=== PATIENT | male | born 1985 | race Caucasian/White ===

== ENCOUNTER 2019-07-08 16:42 | Emergency (ER) | payer BC ==
[2019-07-08 16:51] VITALS: BP 153/69
--- NOTE | 2019-07-08 17:12 | UC ---
Cardiac HPI - HPI Summary HPI Summary: 33-year-old male comes in with a chief complaint of Chest pain. Patient's been having some sternal pain with range of motion and movement for about 2 weeks. 2 nights ago he woke up when he was laying on his left side and had 10 out of 10 left-sided pain. Pain was worse with palpation and taking a deep breath. Denies any shortness of breath or nausea or sweating. He's been taking ibuprofen which helps with the pain. Denies any history of GERD. He did have a left calf cramp which lasted less than a half an hour about 5 days ago. He's had no calf swelling and no other episodes of calf pain. No history of DVT or pulmonary embolus. Calf pain occurred prior to driving to [place]. The severe pain occurred while he was in [place]. When he drove back from [place] he came here to clinic. He has no history of hypertension or high cholesterol or diabetes. No family history of clotting disorders. - History of Current Complaint Chief Complaint: UCChestPain Stated Complaint: CHEST PAIN, RIB PAIN Time Seen by Provider: 07/08/19 16:46 Pain Intensity: 3 - Allergy/Home Medications Allergies/Adverse Reactions: Allergies Allergy/AdvReac Type Severity Reaction Status Date / Time No Known Allergies Allergy Verified 05/06/15 13:47 Home Medications: Home Medications Aspirin 81 mg PO 07/08/19 [History] PMH/Surg Hx/FS Hx/Imm Hx Previously Healthy: Yes - Surgical History Surgical History: Yes Surgery Procedure, Year, and Place: wisdom teeth - Family History Known Family History: Positive: Non-Contributory Negative: Blood Disorder - Social History Alcohol Use: Occasionally Substance Use Type: None Smoking Status (MU): Never Smoked Tobacco - Immunization History Most Recent Tetanus Shot: within 2 yrs - calling PCP to ask Review of Systems All Other Systems Reviewed And Are Negative: Yes Constitutional: Positive: Negative Skin: Positive: Negative Eyes: Positive: Negative ENT: Positive: Negative Respiratory: Positive: Negative Cardiovascular: Positive: Chest Pain Gastrointestinal: Positive: Negative Motor: Positive: Negative Neurovascular: Positive: Negative Musculoskeletal: Positive: Calf Tenderness Neurological: Positive: Negative Psychological: Positive: Negative Is Patient Immunocompromised?: No Physical Exam Triage Information Reviewed: Yes Appearance: Well-Appearing, No Pain Distress, Well-Nourished Vital Signs: Initial Vital Signs Temp 98.6 F 07/08/19 16:43 Pulse 91 07/08/19 16:43 Resp 16 07/08/19 16:43 BP 153/69 07/08/19 16:43 Pulse Ox 99 07/08/19 16:43 Vital Signs Reviewed: Yes Eye Exam: Normal Eyes: Positive: Conjunctiva Clear Neck: Positive: Supple Respiratory: Positive: Lungs clear, Normal breath sounds, No respiratory distress, Other: - Tender to palpation in the left sternal border patient reports this is reproducing the pain that is concerned about. Abdomen Description: Positive: Nontender, Soft Musculoskeletal: Positive: Strength Intact, ROM Intact, No Edema - no calf tenderness Neurological: Positive: Alert, Muscle Tone Normal Psychological: Positive: Age Appropriate Behavior Skin Exam: Normal Diagnostics - EKG Cardiac Rate: NL - at 1644 Cardiac Rhythm: Sinus: Normal - 93bpm Ectopy: None ST Segment: Normal - Assessment/Plan Course Of Treatment: Patient Name: ANDREW CRAMER Medical Record#: [id number] Ordering Physician: Alex Bear MD Acct.#: [id number] : 1985 Age: 33 Sex: M Location: [facility] Exam Date: 07/08/19 170 ADM Status: PRE ER Order Information: RIBS LT UNI W/PA CH MIN 3 VWS Accession Number: [id number] CPT: 30087 Indication: LEFT side splinting sternal/chest pain/tightness. Boxer. Comparison: No relevant prior exams available on the [facility] PACS for comparison. Technique: Dual energy PA chest and 3 dedicated LEFT rib views Report: Skin marker at the inferior lateral aspect indicating the site of clinical concern. No rib fracture, pulmonary contusion, pleural effusion, or pneumothorax. The heart, pulmonary vasculature, and mediastinal contours are unremarkable. IMPRESSION: #. Negative exam. <Electronically signed by Karan Dong MD in [place]> 07/08/19 0189 I discussed the chest x-ray results and the EKG with the patient. I do not see any ischemic changes on EKG. We discussed going to the emergency department for further evaluation to include getting timely blood work for troponin and d- dimer. At this time the patient's low risk for both pulmonary embolus and myocardial infarction. Patient's pain is worse with palpation it's better with ibuprofen. We also discussed the possibility of pericarditis although there no EKG changes. All of this is discussed with the patient and at this time the plan is for the Patient to follow-up his primary care doctor in go the emergency department if anything is worse or has any questions or concerns. - Clinical Impression Provider Diagnosis: Chest pain Discharge - Sign-Out/Discharge Documenting (check all that apply): Patient Departure All imaging exams completed and their final reports reviewed: Yes - Discharge Plan Condition: Stable Disposition: HOME Patient Education Materials: Chest Pain (ED) Referrals: Javad Mireles MD [Primary Care Provider] - Additional Instructions: FOLLOW UP WITH YOUR DOCTOR. GO TO THE EMERGENCY DEPARTMENT IF YOUR CONDITION WORSENS; PAIN, SHORTNESS OF BREATH, FATIGUE, YOU FEEL ILL OR ANY QUESTIONS OR CONCERNS. - Billing Disposition and Condition Condition: STABLE Disposition: Home
== END 2019-07-08 18:05 | disposition home or self-care (01) ==
LOC: UCEAST 16:42
DX: R07.9 Chest pain, unspecified (principal); Z79.82 Long term (current) use of aspirin
CPT/HCPCS: 93005; 99211; G0463